=== PATIENT | male | born 1985 ===

== ENCOUNTER 2023-11-08 13:38 | Emergency (ER) | payer MEDICAID ==
[~2023-11-08] VITALS: Ht 177.8 cm; Wt 72.7 kg
[2023-11-08 14:23] VITALS: BP 114/76; PULSE 92; RESP 18; TEMP 97.8; O2SAT 9
== END 2023-11-08 15:39 | disposition home or self-care (01) ==
LOC: ER 13:39
DX: T40.411A Poisoning by fentanyl or fentanyl analogs, accidental (unintentional), initial encounter (principal); Y92.89 Other specified places as the place of occurrence of the external cause
CPT/HCPCS: 99283